=== PATIENT | female | born 1945 ===

== ENCOUNTER 2024-07-25 13:46 | Emergency (ER) | payer OTHER, SELFPAY ==
[2024-07-25 13:51] VITALS: BP 155/86
[2024-07-25 14:13] LABS: % Basophils 0.8 % (0-2); % Eosinophils 5.3 % (0-6); % Immature Granulocytes 0.2 % (0-0.5); % Lymphocytes 20.3 % (20.5-51.1); % Monocytes 6.5 % (1.7-9.3); % Neutrophils 66.9 % (42.2-75.2); Absolute Basophils 0.1 10^3/uL (0-0.2); Absolute Eosinophils 0.5 10^3/uL (0-0.7); Absolute Lymphocytes 1.7 10^3/uL (1.2-3.4); Absolute Monocytes 0.6 10^3/uL (0.1-0.6); Absolute Neutrophils 5.7 10^3/uL (1.4-6.5); Hematocrit 43.4 % (37.0-47.0); Hemoglobin 14.8 g/dL (12.0-16.0); Mean Corp Hgb Conc. 34.1 g/dL (33.0-37.0); Mean Corpuscular Hgb 31.1 pg (27.0-31.0); Mean Corpuscular Volume 91.2 fL (81.0-99.0); Nucleated Red Blood Cells % 0 %; Platelet Count 253 10^3/uL (130-400); Red Blood Cell Count 4.76 10^6/uL (4.20-5.40); Red Cell Dist. Width 12.6 % (11.5-14.5); White Blood Cell Count 8.5 10^3/uL (4.8-10.8)
[2024-07-25 14:25] LABS: ALT (SGPT) 19 U/L (0-35); AST (SGOT) 25 U/L (14-36); Albumin 4.5 g/dl (3.5-5.0); Alkaline Phosphatase 83 U/L (38-126); Blood Urea Nitrogen 17 mg/dl (7-17); Calcium 9.9 mg/dl (8.4-10.2); Carbon Dioxide 30 mmol/L (22-30); Chloride 99 mmol/L (98-107); Glucose 120 mg/dl (70-99); Potassium 4.2 mmol/L (3.5-5.1); Sodium 137 mmol/L (135-145); Total Bilirubin 0.8 mg/dl (0.2-1.3); Total Protein 7.1 g/dl (6.3-8.2); eGFR 42.09
[2024-07-25 14:34] LABS: Troponin I < 0.012 ng/ml
[2024-07-25 16:00] VITALS: BP 121/80
[2024-07-25 17:00] VITALS: BP 135/58
--- NOTE | 2024-07-25 17:02 | ED.GENMED ---
History of Present Illness
General
Chief Complaint: Chest Pain
Source: patient
Exam Limitations: none
Time Seen by Provider: 07/25/24 17:01
Nursing documentation reviewed up to this point in time: agreed with
History of Present Illness
History of Present Illness:
79 yo female presents to the emergency department c/o left arm pain since last night, intermittent. She took aleve at 8am. She denies any pain at this time. Pain lasts minutes at a time. She also denies any chest pain.
Past History
Past History
ED Past Medical History: Asthma, Cancer (uterine), HTN, Hypercholesterolemia and Other (sleep apnea, prior EKG has showed inverted T waves)
ED Past Surgical History: Gynecological (hysterectomy) and Orthopedic (cervical spine 1999, 2013,2014, lumbar spine, right hip replacement)
Social History
Tobacco: Non-smoker
Alcohol: None
Drug: None
Review of Systems
Review of Systems
Allergies reviewed?: Yes
All Other Systems: Not applicable
Constitutional: Reports no symptoms
EENT: Reports no symptoms
Respiratory: Reports no symptoms
Cardiac: Reports no symptoms
ABD/GI: Reports no symptoms
: Reports no symptoms
Musculoskeletal: Reports muscle pain
Skin: Reports no symptoms
Neurological: Reports no symptoms
Endocrine: Reports no symptoms
Hematologic/Lymphatic: Reports no symptoms
Psychiatric: Reports no symptoms
Phy Exam
Physical Exam
Physical Exam:
Physical Exam
General: no apparent distress, not acutely ill
Neck: supple. no meningeal signs. normal posterior pharynx
Heart: s1/s2 regular rate and rhythm, no murmur. equal radial
pulses.
HEENT: Pupils equal round reactive to light, EOMI
Lungs: no acute respiratory distress. clear bilaterally
Abdomen: normal bowel sounds. not tender. no CVAT
Neuro: alert and oriented. no focal neurological deficits cranial nerves II through XII intact
Skin: no rash
Psychiatric: well kept. interactive and cooperative
Extremities: no edema. no calf tenderness. negative homans. good distal pulses
Scores
Heart Score for Chest Pain Patients
STEMI patient?: No
History: Slightly or Non-Suspicious
ECG: Nonspecific Repolarization
Age: >45 - <65 years
Risk Factors: 1 or 2 Risk Factors
Troponin: </= Normal Limit
Heart Score for Chest Pain Patients: 3
Heart Score Risk: 2.5% MACE over next 6 weeks
Course
Orders/Labs/Results
Orders:
Orders
07/25/24 13:47
EKG [Electrocardiogram (*1)] Urgent
Reason for Study: Chest Pain
EKG- Treatment ONCE
07/25/24 14:00
Complete Blood Count/With Diff Urgent
Comprehensive Metabolic Panel Urgent
Troponin I Urgent
07/25/24 15:55
CR Chest - 2 Views Urgent
Comment:
Reason For Exam: chest pain
07/25/24 17:19
US Periph Venous UPPER Ext LT Urgent
Comment:
Reason For Exam: left upper arm pain
Abnormal Lab Results
07/25/24
14:00
MCH 31.1 H pg
(27.0-31.0)
Lymphocytes % 20.3 L %
(20.5-51.1)
Creatinine 1.3 H mg/dL
(0.6-1.0)
Glucose 120 H mg/dl
(70-99)
07/25/24 14:00
07/25/24 14:00
Vital Signs
Initial and Last Documented VS:
Initial Vital Signs
Temp Pulse Resp BP Pulse Ox
97.9 F 60 16 155/86 98
07/25/24 13:51 07/25/24 13:51 07/25/24 13:51 07/25/24 13:51 07/25/24 13:51
Last Documented Vital Signs
Temp Pulse Resp BP Pulse Ox
97.9 F 50 20 135/58 97
07/25/24 13:51 07/25/24 17:15 07/25/24 17:15 07/25/24 17:00 07/25/24 17:15
MDM/Problems Addressed
Differential Diagnosis Includes:
DVT, ACS
MDM/Problems Addressed:
79-year-old female with intermittent left upper arm pain. Doubt ACS or PE. Will check ultrasound. Symptoms intermittent since yesterday and no pain at this time. EKG unchanged from prior. Follow-up with primary care after negative ultrasound.
*Radiology
Radiology exam reviewed: preliminary read by ED provider (cxr nad) and radiology read reviewed (US LUE neg for DVT)
*Pulse Oximetry
Patient hypoxic: no
*EKG
Interpreted by ED Provider?: Yes
EKG Intrepretation Date: 07/25/24
EKG Intrepretation Time: 13:52
Interpretation: abnormal
Comparison EKG: no comparison EKG present
Heart Rate: 53
Rate: bradycardiac
Rhythm: sinus
Watson: normal axis
Interval: first degree heart block
QRS Pattern: normal QRS
Ischemia: no ischemia
*Critical Care Note
Total Time (30-74mins, 75-104mins- exclusive of procedures): Not Applicable
Patient Management
Social determinants of health affecting care: Living situation and Strong social support
Escalation/DeEscalation of care consider admission/obs:
Admit not indicated
ED Attending Note
-
Portions of this chart may have been created with voice recognition software.� Occasional wrong word or��sound alike� substitutions may have occurred due to the inherent limitations of voice recognition software.
Discharge Plan
Departure
Patient Disposition: Home (Routine Discharge)
Date of Disposition: 07/25/24
Time of Disposition: 18:29
Patient with high blood pressure during this ER visit?: Yes
Condition: Good
Discharge Problem:
Arm pain, left
Instructions: Muscle, joint, and bone pain - Discharge instructions, BLOOD PRESSURE
Referrals:
Hazel Griffin MD [Family Provider] - Call in 1-3 days for appt
Interventions
Interventions:
*Risk Screen - Suicide Last Done: 07/25/24 13:51
*General Assessment Last Done: 07/25/24 17:05
*Neglect/Abuse Screening Last Done: 07/25/24 13:51
ED- Fall Risk Assessment Last Done: 07/25/24 17:04
*ED COVID-19 Vaccine History Last Done: 07/25/24 17:05
ED- Cardiac Assessment Last Done: 07/25/24 17:02
Discharge Date and Time
Print Language: HUNGARIAN
== END 2024-07-25 18:50 | disposition home or self-care (01) ==
LOC: EMR 13:46
PROVIDERS: Emergency Medicine; EMERGENCY PHYSICIAN Emergency Medicine; FAMILY PHYSICIAN Family Medicine; OTHER PHYSICIAN Internal Medicine
DX: M79.602 Pain in left arm (principal); J45.909 Unspecified asthma, uncomplicated; I10 Essential (primary) hypertension; E78.00 Pure hypercholesterolemia, unspecified; G47.30 Sleep apnea, unspecified
CPT/HCPCS: 99285; 71046; 80053; 84484; 85025; 93005; 93971